=== PATIENT | female | born 1955 | race Caucasian/White ===

== ENCOUNTER 2018-08-02 10:18 | Day surgery (SDC) | payer MEDICAID ==
[~2018-08-02] VITALS: Ht 154.9 cm; Wt 92.1 kg
[2018-08-02 11:37] LABS: CHLORIDE 110 mEq/L (98-107)
[2018-08-02] MEDS ORDERED: SODIUM CHLORIDE 0.9% 1,000 ML IV SCH (11:50)
[2018-08-02] MEDS ORDERED: METF-414 PO (11:59)
[2018-08-02] MEDS ORDERED: ENAL10TA PO (12:00)
[2018-08-02] MEDS ORDERED: ASPI-1159 PO (12:01)
[2018-08-02] MEDS ORDERED: SIMV10TA6 PO (12:01)
[2018-08-02] MEDS ORDERED: LIDOCAINE HCL 1% 20ML VIAL (Pyxis) INJ ONE ×2 (13:48→14:27)
[2018-08-02] MEDS ORDERED: SKIN ADHESIVE 0.7 GM EA TOP ONE (13:48)
[2018-08-02] MEDS ORDERED: NORMAL SALINE 0.9% 10 ML SYR ONE (13:49)
[2018-08-02] MEDS ORDERED: BUPIVACAINE HCL/PF 0.5% (5MG/ML) 10ML ONE (13:49)
[2018-08-02] MEDS ORDERED: BACITRACIN 50,000 UNITS/VIAL ONE (13:49)
[2018-08-02] MEDS ORDERED: PROPOFOL 200MG/20ML VIAL IV ONE (14:27)
[2018-08-02] MEDS ORDERED: FENTANYL CITRATE/PF 50MCG/ML 2ML VIAL ONE (14:27)
[2018-08-02] MEDS ORDERED: MIDAZOLAM HCL 2 MG/2 ML VIAL ONE (14:27)
[2018-08-02] MEDS ORDERED: DEXAMETHASONE 4MG/ML 1ML VIAL ONE (14:40)
[2018-08-02] MEDS ORDERED: ONDANSETRON HCL 4MG/2ML INJ ONE (14:40)
[2018-08-02] MEDS ORDERED: CEFAZOLIN SODIUM 1000MG/VIAL ONE (14:40)
[2018-08-02] MEDS ORDERED: GLYCOPYRROLATE 0.2 MG/ML 2ML VIAL ONE (15:23)
[2018-08-02] MEDS ORDERED: KETOROLAC 30MG/ML VIAL ONE (15:33)
[2018-08-02] MEDS ORDERED: ROCURONIUM BROMIDE 10MG/ML VIAL 5ML IV ONE (15:37)
[2018-08-02] MEDS ORDERED: ONDANSETRON HCL 4MG/2ML INJ IV PRN (16:00)
[2018-08-02] MEDS ORDERED: MEPERIDINE HCL/PF 25MG/ML CPJ IV PRN (16:00)
[2018-08-02] MEDS ORDERED: HYDROMORPHONE HCL/PF 2MG/ML CPJ IV PRN (16:00)
== END 2018-08-02 18:20 | disposition home or self-care (01) ==
LOC: OR 10:18
PROVIDERS: ATTEND Specialist
DX: K43.6 Other and unspecified ventral hernia with obstruction, without gangrene (principal); E11.9 Type 2 diabetes mellitus without complications; E66.9 Obesity, unspecified
CPT/HCPCS: 36415; 49561; 49568; 80048; 82962; C1781; G0168; J0690; J1100; J1885; J2250; J2405; J2704; J3010; J3490